=== PATIENT | male | born 1995 | race Caucasian/White ===

== ENCOUNTER 2018-05-16 04:53 | Emergency (ER) | payer SELFPAY ==
[~2018-05-16] VITALS: Ht 185.4 cm; Wt 102.0 kg
[~2018-05-16 04:53] MED LIST: AUGMENTIN500 MG OR; CEPHALEXIN500 MG PO; CLARITIN10 MG OR; LORTAB 5/3255 MG PO; NO; PREVACID30 M1 PO; TYLENOL500 MG OR; ZITHROMAX500 MG OR; [UNRECOGNIZED DRUG - REMARK]
[2018-05-16] MEDS ORDERED: ULTRAM50 M1 PO (05:14)
[2018-05-16] MEDS ORDERED: CLEOCIN300 MG PO (05:14)
[2018-05-16 05:28] VITALS: BP 124/80
== END 2018-05-16 05:28 | disposition home or self-care (01) | DRG 159 ==
LOC: ED 04:53
DX: K04.7 Periapical abscess without sinus (principal); K03.81 Cracked tooth

== ENCOUNTER 2021-01-10 09:24 | Emergency (ER) | payer SELFPAY ==
[~2021-01-10] VITALS: Ht 185.4 cm; Wt 100.0 kg
[~2021-01-10 09:24] MED LIST changes: +CLEOCIN300 MG PO; +ULTRAM50 M1 PO
[2021-01-10] MEDS ORDERED: CELEBREX100 M1 PO (12:13)
[2021-01-10 12:25] VITALS: BP 115/58
== END 2021-01-10 12:25 | disposition home or self-care (01) | DRG 914 ==
LOC: ED 09:24
DX: S49.91XA Unspecified injury of right shoulder and upper arm, initial encounter (principal); X50.0XXA Overexertion from strenuous movement or load, initial encounter; Y93.89 Activity, other specified